=== PATIENT | male | born 1970 | race Caucasian/White ===

== ENCOUNTER → 2023-08-09 06:35 | Day surgery (SDC) | payer OTHER, SELFPAY | LOC: GI 06:35 | PROVIDERS: ATTENDING PHYSICIAN Internal Medicine Gastroenterology; FAMILY PHYSICIAN Physician Assistant Medical | DX: Z12.11 Encounter for screening for malignant neoplasm of colon (principal); K64.8 Other hemorrhoids; K63.5 Polyp of colon; D12.3 Benign neoplasm of transverse colon; D12.4 Benign neoplasm of descending colon; D12.5 Benign neoplasm of sigmoid colon | CPT/HCPCS: 45385; 45381; 45380; 88305 ==

== ENCOUNTER → 2023-09-18 17:36 | Outpatient (REF) | payer OTHER, SELFPAY | LOC: PAVMRI 17:36 | PROVIDERS: ATTENDING PHYSICIAN Orthopaedic Surgery Hand Surgery; FAMILY PHYSICIAN Physician Assistant Medical | DX: M19.012 Primary osteoarthritis, left shoulder (principal); M75.22 Bicipital tendinitis, left shoulder | CPT/HCPCS: 73221 ==

== ENCOUNTER → 2024-07-19 10:08 | Outpatient (REF) | payer OTHER, SELFPAY | LOC: RCS 10:08 | PROVIDERS: ATTENDING PHYSICIAN Family Medicine | DX: Z01.818 Encounter for other preprocedural examination (principal) | CPT/HCPCS: 93005 ==

== ENCOUNTER 2024-07-28 06:17 | Day surgery (SDC) | payer OTHER, SELFPAY ==
[2024-07-28] VITALS (14 sets, daily range): BP systolic 114–137; BP diastolic 61–83; BMI 43.8
[2024-07-28] MEDS: TYLENOL 1000 MG PO (12:13)
[2024-07-28 12:17] LABS: Glucose - Point of Care 100 mg/dl (70-99)
[2024-07-28] MEDS: NORMOSOL-R/PLASMALYTE-A 1000 IV (12:17)
[2024-07-28] MEDS: BACTROBAN NASAL 1 GRAM NASAL (12:25)
[2024-07-28] MEDS: NORCO 5/325 2 TABLET PO (14:03)
--- NOTE | 2024-07-28 14:07 | PTCARENOTE ---
Patient very upset that he has been waiting since 1130. Charlie CASTILLO notified. Charlie RN over to see patient. Patient to be brought to the holding unit for a block. Patient requesting 2 Vicodin. Patient had an order obtained from [facility]
Anesthesia. Patient did receive 2 Tylenol at 1220 and per [facility] ok to give patient the 2 Vicodan even though it exceeds the Tylenol dose as a one time order. Patient was checked on numerous times and aware that their is a backup in the OR due
to first patient of the morning delay. Will monitor patient.
--- NOTE | 2024-07-28 14:17 | W.DS.TRANS ---
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
-
Discharge Instructions:
Discharge Diagnosis/Procedures L TSA 07/28/24
Diet Diabetic, Carb Controlled
Activity No strenuous activity
Driving Restrictions No driving
Instructions:
Stand-Alone Forms: SDS Total Shoulder D/C Inst.
Changes to Home Medications: Yes
Discharge Medications:
DC Medications w/original date entered in [facility] ([facility])
omeprazole 40 mg capsule,delayed release 40 mg PO DAILY 05/01/21
sertraline 50 mg tablet 50 mg PO DAILY 05/01/21
montelukast 10 mg tablet (Singulair) 10 mg PO DAILY 02/13/23
Medical Marijuana 1 dose inhalation PRN PRN Pain 07/23/24
albuterol sulfate 90 mcg/actuation aerosol inhaler 2 puff inhalation PRN PRN SOB, Wheezes 07/23/24
ascorbic acid (vitamin C) 1,000 mg tablet (Vitamin C) 1 g PO DAILY 07/23/24
buprenorphine 20 mcg/hour weekly transdermal patch 1 patch transdermal FR 07/23/24
calcium 333 mg-vit D3 133 unit-magnesium 133 mg-zinc 5 mg tablet 1 tab PO DAILY 07/23/24
cholecalciferol (vitamin D3) 25 mcg (1,000 unit) chewable tablet (Vitamin D3) 25 mcg PO DAILY 07/23/24
gabapentin 100 mg tablet 200 mg PO BID 07/23/24
wttmnvfzonf-xnwpiinee-uol C-Mn 500 mg-400 mg capsule 1 cap PO DAILY 07/23/24
hydrochlorothiazide 12.5 mg tablet 12.5 mg PO DAILY 07/23/24
hydrocodone 5 mg-acetaminophen 325 mg tablet 1 - 3 tab PO Q4H Pain 07/23/24
metformin 500 mg tablet 500 mg PO DAILY 07/23/24
multivitamin 1 tab PO DAILY 07/23/24
propranolol 20 mg tablet 20 mg PO BID 07/23/24
sildenafil 50 mg tablet (Viagra) 50 mg PO DAILY PRN ED 07/23/24
simvastatin 40 mg tablet 40 mg PO HS 07/23/24
vitamin B complex 1 tab PO DAILY 07/23/24
vitamin E 268 mg (400 unit) capsule 268 mg PO DAILY 07/23/24
mupirocin 2 % topical ointment 1 applic intranasal BID #1 tube 07/24/24
aspirin 325 mg tablet 325 mg PO DAILY blood clot prevention #1 tab 07/28/24
celecoxib 200 mg capsule 200 mg PO DAILY Anti-inflammatory #14 caps 07/28/24
docusate sodium 100 mg capsule (Colace) 100 mg PO BID stool softner #1 cap 07/28/24
magnesium hydroxide 400 mg/5 mL oral suspension (Milk of Magnesia) 30 ml PO HS PRN Constipation #1 mL 07/28/24
ondansetron 4 mg disintegrating tablet 4 mg PO Q6H PRN n/v #20 tabs 07/28/24
sennosides 8.6 mg tablet (Senokot) 17.2 mg (2 x 8.6 mg) PO BID laxative #2 tabs 07/28/24
Home Medication Changes
aspirin 325 mg tablet 325 mg PO DAILY blood clot prevention #1 tab 07/28/24
celecoxib 200 mg capsule 200 mg PO DAILY Anti-inflammatory #14 caps 07/28/24
docusate sodium 100 mg capsule (Colace) 100 mg PO BID stool softner #1 cap 07/28/24
magnesium hydroxide 400 mg/5 mL oral suspension (Milk of Magnesia) 30 ml PO HS PRN Constipation #1 mL 07/28/24
ondansetron 4 mg disintegrating tablet 4 mg PO Q6H PRN n/v #20 tabs 07/28/24
sennosides 8.6 mg tablet (Senokot) 17.2 mg (2 x 8.6 mg) PO BID laxative #2 tabs 07/28/24
Pending Results: No
[2024-07-28 18:58] LABS: Glucose - Point of Care 123 mg/dl (70-99)
--- NOTE | 2024-07-28 20:02 | SUR.PHASEI ---
spoke with Dr Davis concerning O2 sats. when on room air sats to 88%. Dr Davis agrees restart O2. consider admission for O2
[2024-07-28] MEDS: ANCEF 10 IV (21:25)
--- NOTE | 2024-07-28 22:00 | SUR.PHASEI ---
patient continued in PACU - Dr Eaton updated. Dr Davis visits, at 2044, with HOB in high fowlers, sats improved and able to wean O2. Patient feels stronger and wishes to go home. O2 off, and proceed with phase II in pacu
== END 2024-07-28 21:30 | disposition home or self-care (01) ==
LOC: SDS 06:17
PROVIDERS: ATTENDING PHYSICIAN Orthopaedic Surgery Hand Surgery
DX: M19.012 Primary osteoarthritis, left shoulder (principal)
CPT/HCPCS: 23472; C1713; C1776; 73020; 82962; 87070

== ENCOUNTER 2024-09-17 18:00 | Outpatient (RCR) | payer OTHER, SELFPAY | END 2024-09-17 23:59 | disposition home or self-care (01) | LOC: RPT 18:00 | PROVIDERS: ATTENDING PHYSICIAN Orthopaedic Surgery Hand Surgery; FAMILY PHYSICIAN Family Medicine | DX: Z47.1 Aftercare following joint replacement surgery (principal); M19.012 Primary osteoarthritis, left shoulder; M25.512 Pain in left shoulder; R20.0 Anesthesia of skin; M62.81 Muscle weakness (generalized); Z96.612 Presence of left artificial shoulder joint | CPT/HCPCS: 97010; 97110; 97140; 97162; 97535 ==

== ENCOUNTER 2024-10-15 17:02 | Outpatient (RCR) | payer OTHER, SELFPAY | END 2024-10-15 23:59 | disposition home or self-care (01) | LOC: RPT 17:02 | PROVIDERS: ATTENDING PHYSICIAN Orthopaedic Surgery Hand Surgery; FAMILY PHYSICIAN Family Medicine | DX: Z47.1 Aftercare following joint replacement surgery (principal); Z96.612 Presence of left artificial shoulder joint; M19.012 Primary osteoarthritis, left shoulder; M25.512 Pain in left shoulder; R20.0 Anesthesia of skin; M62.81 Muscle weakness (generalized) | CPT/HCPCS: 97110; 97112; 97140 ==

== ENCOUNTER 2024-11-20 06:46 | Outpatient (RCR) | payer OTHER, SELFPAY | END 2024-11-20 23:59 | disposition home or self-care (01) | LOC: RPT 06:46 | PROVIDERS: ATTENDING PHYSICIAN Orthopaedic Surgery Hand Surgery; FAMILY PHYSICIAN Family Medicine | DX: Z47.1 Aftercare following joint replacement surgery (principal); M25.512 Pain in left shoulder; M19.012 Primary osteoarthritis, left shoulder; R20.0 Anesthesia of skin; Z96.612 Presence of left artificial shoulder joint; M62.81 Muscle weakness (generalized) | CPT/HCPCS: 97110; 97112; 97530 ==

== ENCOUNTER 2025-01-12 18:01 | Outpatient (RCR) | payer OTHER, SELFPAY | END 2025-01-12 23:59 | disposition home or self-care (01) | LOC: RPT 18:01 | PROVIDERS: ATTENDING PHYSICIAN Physical Medicine & Rehabilitation; FAMILY PHYSICIAN Family Medicine | DX: M17.0 Bilateral primary osteoarthritis of knee (principal); R26.89 Other abnormalities of gait and mobility; Z73.6 Limitation of activities due to disability; M62.81 Muscle weakness (generalized); M25.562 Pain in left knee; M25.561 Pain in right knee; Z96.643 Presence of artificial hip joint, bilateral | CPT/HCPCS: 97110; 97162; 97530; 97535 ==

== ENCOUNTER 2025-02-16 09:40 | Outpatient (RCR) | payer OTHER, SELFPAY | END 2025-02-16 23:59 | disposition home or self-care (01) | LOC: RPT 09:40 | PROVIDERS: ATTENDING PHYSICIAN Physical Medicine & Rehabilitation; FAMILY PHYSICIAN Family Medicine | DX: M17.0 Bilateral primary osteoarthritis of knee (principal); R26.89 Other abnormalities of gait and mobility; Z73.6 Limitation of activities due to disability; M62.81 Muscle weakness (generalized); M25.562 Pain in left knee; M25.561 Pain in right knee; Z96.643 Presence of artificial hip joint, bilateral | CPT/HCPCS: 97110; 97530 ==

== ENCOUNTER 2025-03-16 13:49 | Outpatient (RCR) | payer OTHER, SELFPAY | END 2025-03-16 23:59 | disposition home or self-care (01) | LOC: RPT 13:49 | PROVIDERS: ATTENDING PHYSICIAN Physical Medicine & Rehabilitation; FAMILY PHYSICIAN Family Medicine | DX: M17.0 Bilateral primary osteoarthritis of knee (principal); R26.89 Other abnormalities of gait and mobility; Z73.6 Limitation of activities due to disability; M62.81 Muscle weakness (generalized); M25.562 Pain in left knee; M25.561 Pain in right knee; Z96.643 Presence of artificial hip joint, bilateral | CPT/HCPCS: 97110; 97530 ==

== ENCOUNTER 2025-04-08 17:11 | Outpatient (RCR) | payer OTHER, SELFPAY | END 2025-04-08 23:59 | disposition home or self-care (01) | LOC: RPT 17:11 | PROVIDERS: ATTENDING PHYSICIAN Physical Medicine & Rehabilitation; FAMILY PHYSICIAN Family Medicine | DX: M17.0 Bilateral primary osteoarthritis of knee (principal); R26.89 Other abnormalities of gait and mobility; Z73.6 Limitation of activities due to disability; M62.81 Muscle weakness (generalized); M25.562 Pain in left knee; M25.561 Pain in right knee; Z96.643 Presence of artificial hip joint, bilateral | CPT/HCPCS: 97110; 97530 ==